=== PATIENT | female | born 1960 | race Caucasian/White ===

== ENCOUNTER 2017-03-31 19:11 | Emergency (ER) | payer MEDICAID ==
[~2017-03-31] VITALS: Ht 162.6 cm; Wt 106.0 kg
[2017-04-01] MEDS ORDERED: FAMOTIDINE 20MG TABLET PO ONE (00:15)
[2017-04-01] MEDS ORDERED: IBUPROFEN 600MG TABLET PO ONE (00:15)
[2017-04-01 01:58] VITALS: BP 127/76
== END 2017-04-01 06:00 | disposition home or self-care (01) ==
LOC: ER 19:11
DX: S90.01XA Contusion of right ankle, initial encounter (principal); S80.01XA Contusion of right knee, initial encounter; S90.31XA Contusion of right foot, initial encounter; E78.00 Pure hypercholesterolemia, unspecified; W01.0XXA Fall on same level from slipping, tripping and stumbling without subsequent striking against object, initial encounter; Y93.E8 Activity, other personal hygiene; Y92.89 Other specified places as the place of occurrence of the external cause; Y99.8 Other external cause status
CPT/HCPCS: 73610; 73630; 99284

== ENCOUNTER 2017-06-17 18:16 | Emergency (ER) | payer MEDICAID, OTHER ==
[~2017-06-17] VITALS: Ht 162.6 cm; Wt 100.0 kg
[2017-06-17 21:49] LABS: BASOPHILS % 0.4 % (0.0-2.0); EOSINOPHILS % 5.8 % (0.0-5.0); HEMATOCRIT. 35.9 % (36.0-48.0); HEMOGLOBIN. 11.8 g/dL (12.0-16.0); LYMPHOCYTES % 33.8 % (20.0-50.0); MEAN CORPUSCULAR HEMOGLOBIN 30.2 pg (28.0-32.0); MEAN PLATELET VOLUME 8.9 fl (7.4-10.4); MONOCYTES % 6.4 % (2.0-8.0); NEUTROPHILS % 53.6 % (40.0-76.0); PLATELET 217 x1000/uL (130-400); RED CELL DISTRIBUTION WIDTH 13.9 % (11.6-14.6)
[2017-06-17 21:53] LABS: CLARITY URINE CLOUDY (CLEAR); COLOR URINE YELLOW (YELLOW); GLUCOSE URINE NEGATIVE (NEGATIVE); KETONES URINE NEGATIVE (NEGATIVE); LEUKOCYTE ESTERASE URINE NEGATIVE (NEGATIVE); NITRITE URINE NEGATIVE (NEGATIVE); OCCULT BLOOD URINE NEGATIVE (NEGATIVE); PH URINE 7.5 (4.5-8.0); PROTEIN URINE NEGATIVE (NEGATIVE); SPECIFIC GRAVITY URINE 1.022 (1.005-1.030); UROBILINOGEN URINE 0.2 E.U./dL (0.2-1.0)
[2017-06-17 21:57] LABS: PROTHROMBIN TIME 10.3 sec (9.4-11.6)
[2017-06-17 21:59] LABS: CHLORIDE 105 mEq/L (98-107)
[2017-06-17 22:08] LABS: CARBON DIOXIDE 30 mEq/L (21-32)
[2017-06-17] MEDS ORDERED: MAGNESIUM/ALUMINUM HYDROXIDE/SIMETHICONE 30ML UDC PO STA (23:18)
[2017-06-17] MEDS ORDERED: FAMOTIDINE 20MG/2ML VIAL IV STA (23:18)
[2017-06-18 00:44] VITALS: BP 112/55
== END 2017-06-18 00:46 | disposition home or self-care (01) ==
LOC: ER 18:23
DX: R10.12 Left upper quadrant pain (principal); D64.9 Anemia, unspecified; E78.00 Pure hypercholesterolemia, unspecified; J45.909 Unspecified asthma, uncomplicated; R73.9 Hyperglycemia, unspecified; Z90.49 Acquired absence of other specified parts of digestive tract; Z98.890 Other specified postprocedural states
CPT/HCPCS: 36415; 80053; 81001; 83690; 85025; 85610; 96374; 99284; J3490; Z7610

== ENCOUNTER 2018-01-18 10:20 | Emergency (ER) | payer OTHER ==
[~2018-01-18] VITALS: Ht 162.6 cm; Wt 100.0 kg
[2018-01-18] MEDS ORDERED: MAGNESIUM/ALUMINUM HYDROXIDE/SIMETHICONE 30ML UDC PO STA (11:07)
[2018-01-18] MEDS ORDERED: FAMOTIDINE 20MG/2ML VIAL IV ONE (11:15)
[2018-01-18] MEDS ORDERED: SODIUM CHLORIDE 0.9% 1,000 ML IV ONE (11:15)
[2018-01-18] MEDS ORDERED: ONDANSETRON HCL 4MG/2ML VIAL IV ONE (11:15)
[2018-01-18 11:32] LABS: CLARITY URINE CLEAR (CLEAR); COLOR URINE YELLOW (YELLOW); KETONES URINE NEGATIVE (NEGATIVE); LEUKOCYTE ESTERASE URINE NEGATIVE (NEGATIVE); NITRITE URINE NEGATIVE (NEGATIVE); OCCULT BLOOD URINE NEGATIVE (NEGATIVE); PH URINE 5.5 (4.5-8.0); PROTEIN URINE NEGATIVE (NEGATIVE); SPECIFIC GRAVITY URINE 1.021 (1.005-1.030)
[2018-01-18 11:52] LABS: BASOPHILS % 0.2 % (0.0-2.0); EOSINOPHILS % 1.5 % (0.0-5.0); HEMATOCRIT. 35.7 % (36.0-48.0); HEMOGLOBIN. 12.1 g/dL (12.0-16.0); LYMPHOCYTES % 20.2 % (20.0-50.0); MEAN CORPUSCULAR HEMOGLOBIN 31.5 pg (28.0-32.0); MEAN PLATELET VOLUME 8.9 fl (7.4-10.4); MONOCYTES % 10.6 % (2.0-8.0); NEUTROPHILS % 67.5 % (40.0-76.0); PLATELET 220 x1000/uL (130-400); RED BLOOD CELL COUNT 3.84 mill/uL (4.2-5.4); RED CELL DISTRIBUTION WIDTH 13.9 % (11.6-14.6)
[2018-01-18 11:56] LABS: PROTHROMBIN TIME 10.7 sec (9.4-11.6)
[2018-01-18 11:58] LABS: CHLORIDE 105 mEq/L (98-107)
[2018-01-18] MEDS ORDERED: PREDNISONE 20MG TABLET PO STA (13:34)
[2018-01-18] MEDS ORDERED: ALBUTEROL (0.083%) 2.5MG/3ML NEB HHN STA (13:34)
[2018-01-18] MEDS ORDERED: IPRATROPIUM BROMIDE (0.02%) 0.5MG/2.5ML NEB HHN STA (13:34)
[2018-01-18] MEDS ORDERED: FENTANYL CITRATE/PF 50MCG/ML 2ML VIAL IV ONE (13:45)
[2018-01-18 16:09] VITALS: BP 124/74
== END 2018-01-18 16:11 | disposition home or self-care (01) ==
LOC: ER 11:02
DX: R10.13 Epigastric pain (principal); R73.9 Hyperglycemia, unspecified; E78.00 Pure hypercholesterolemia, unspecified; Z90.710 Acquired absence of both cervix and uterus
CPT/HCPCS: 36415; 71045; 80053; 81003; 83690; 85025; 85610; 94640; 96361; 96374; 96375; 99285; J2405; J3010; J3490; J7030; J7512; J7611

== ENCOUNTER 2019-01-29 19:11 | Emergency (ER) | payer MEDICAID, OTHER ==
[~2019-01-29] VITALS: Ht 165.1 cm; Wt 100.0 kg
[2019-01-29] MEDS ORDERED: MORPHINE SULFATE 4 MG/ML CPJ (NOT FOR IM USE) IV STA (20:12)
[2019-01-29] MEDS ORDERED: ONDANSETRON HCL 4MG/2ML INJ IV STA (20:12)
[2019-01-29 20:26] LABS: BASOPHILS % 0.2 % (0.0-2.0); EOSINOPHILS % 0.2 % (0.0-5.0); HEMATOCRIT. 38.9 % (36.0-48.0); HEMOGLOBIN. 13.1 g/dL (12.0-16.0); LYMPHOCYTES % 18.8 % (20.0-50.0); MEAN CORPUSCULAR HEMOGLOBIN 31.5 pg (28.0-32.0); MEAN CORPUSCULAR VOLUME 93.3 fL (81.0-99.0); MEAN PLATELET VOLUME 8.8 fl (7.4-10.4); MONOCYTES % 4.5 % (2.0-8.0); NEUTROPHILS % 76.3 % (40.0-76.0); PLATELET 262 x1000/uL (130-400); RED BLOOD CELL COUNT 4.17 mill/uL (4.2-5.4); RED CELL DISTRIBUTION WIDTH 13.6 % (11.6-14.6)
[2019-01-29 20:33] LABS: CHLORIDE 104 mEq/L (98-107)
[2019-01-29 20:35] LABS: PROTHROMBIN TIME 10.1 sec (9.6-11.0)
[2019-01-29 20:48] LABS: CLARITY URINE CLEAR (CLEAR); COLOR URINE YELLOW (YELLOW); KETONES URINE NEGATIVE (NEGATIVE); LEUKOCYTE ESTERASE URINE NEGATIVE (NEGATIVE); NITRITE URINE NEGATIVE (NEGATIVE); OCCULT BLOOD URINE NEGATIVE (NEGATIVE); PROTEIN URINE NEGATIVE (NEGATIVE); SPECIFIC GRAVITY URINE 1.009 (1.005-1.030); UROBILINOGEN URINE 0.2 E.U./dL (0.2-1.0)
[2019-01-29 23:02] VITALS: BP 111/59
== END 2019-01-29 23:02 | disposition home or self-care (01) ==
LOC: ER 19:11
DX: K57.92 Diverticulitis of intestine, part unspecified, without perforation or abscess without bleeding (principal); K64.4 Residual hemorrhoidal skin tags; E78.00 Pure hypercholesterolemia, unspecified; Z90.710 Acquired absence of both cervix and uterus
CPT/HCPCS: 36415; 74176; 80053; 81003; 83690; 85025; 85610; 96374; 96375; 99284; J2270; J2405; Z7610

== ENCOUNTER 2019-04-05 01:14 | Emergency (ER) | payer MEDICAID ==
[~2019-04-05] VITALS: Ht 160 cm; Wt 100.0 kg
[2019-04-05] MEDS ORDERED: MAGNESIUM/ALUMINUM HYDROXIDE/SIMETHICONE 30ML UDC PO STA (02:12)
[2019-04-05] MEDS ORDERED: VISCOUS LIDOCAINE 2% 15 ML UDC PO STA (02:12)
[2019-04-05] MEDS ORDERED: OMEPRAZOLE 20MG CAPSULE EXTENDED RELEASE PO ONE (02:15)
[2019-04-05 02:30] LABS: BASOPHILS % 0.3 % (0.0-2.0); EOSINOPHILS % 1.2 % (0.0-5.0); HEMATOCRIT. 35.6 % (36.0-48.0); HEMOGLOBIN. 12.1 g/dL (12.0-16.0); LYMPHOCYTES % 40.3 % (20.0-50.0); MEAN CORPUSCULAR HEMOGLOBIN 31.4 pg (28.0-32.0); MEAN CORPUSCULAR VOLUME 92.3 fL (81.0-99.0); MEAN PLATELET VOLUME 8.1 fl (7.4-10.4); MONOCYTES % 7.2 % (2.0-8.0); PLATELET 213 x1000/uL (130-400); RED BLOOD CELL COUNT 3.86 mill/uL (4.2-5.4); RED CELL DISTRIBUTION WIDTH 13.6 % (11.6-14.6)
[2019-04-05 02:42] LABS: CHLORIDE 105 mEq/L (98-107)
[2019-04-05 02:46] LABS: ETHANOL BLOOD < 10 mg/dL
[2019-04-05 04:10] VITALS: BP 131/79
== END 2019-04-05 05:04 | disposition home or self-care (01) ==
LOC: ER 01:14
DX: K57.90 Diverticulosis of intestine, part unspecified, without perforation or abscess without bleeding (principal); E78.00 Pure hypercholesterolemia, unspecified
CPT/HCPCS: 36415; 74176; 80320; 93005; 99284; G0480

== ENCOUNTER 2021-02-25 19:27 | Emergency (ER) | payer MEDICARE, OTHER ==
[~2021-02-25] VITALS: Ht 165.1 cm; Wt 99.9 kg
[2021-02-25] MEDS ORDERED: HYDR-4001 MT (22:52)
[2021-02-25] MEDS ORDERED: AMOX1TAB16 MT (22:52)
[2021-02-25 22:56] VITALS: BP 134/61
[2021-02-25] MEDS ORDERED: AMOXICILLIN/POTASSIUM CLAVULANATE 875/125MG TAB PO ONE (23:00)
[2021-02-25] MEDS ORDERED: HYDROCODONE/ACETAMINOPHEN 5/325MG TABLET PO ONE (23:00)
== END 2021-02-25 23:20 | disposition home or self-care (01) ==
LOC: ER 19:57
DX: L03.116 Cellulitis of left lower limb (principal); R19.7 Diarrhea, unspecified; K21.9 Gastro-esophageal reflux disease without esophagitis; E78.00 Pure hypercholesterolemia, unspecified; J45.909 Unspecified asthma, uncomplicated
CPT/HCPCS: 99283

== ENCOUNTER 2021-10-01 20:37 | Emergency (ER) | payer MEDICARE, MEDICAID ==
[~2021-10-01] VITALS: Ht 152.4 cm; Wt 101.0 kg
[~2021-10-01 20:37] MED LIST: AMOX1TAB16 MT; HYDR-4001 MT
[2021-10-01] MEDS ORDERED: VISCOUS LIDOCAINE 2% 15 ML UDC PO STA (21:28)
[2021-10-01] MEDS ORDERED: MAGNESIUM/ALUMINUM HYDROXIDE/SIMETHICONE 30ML UDC PO STA (21:28)
[2021-10-01] MEDS ORDERED: PANTOPRAZOLE SODIUM 40 MG/VIAL IV STA (21:28)
[2021-10-01] MEDS ORDERED: ONDANSETRON HCL 4MG/2ML INJ IV STA (21:28)
[2021-10-01] MEDS ORDERED: DICYCLOMINE HCL 10MG/ML 2ML VIAL IM ONE (21:30)
[2021-10-01 22:26] LABS: CLARITY URINE CLEAR (CLEAR); COLOR URINE YELLOW (YELLOW); KETONES URINE NEGATIVE (NEGATIVE); LEUKOCYTE ESTERASE URINE NEGATIVE (NEGATIVE); NITRITE URINE NEGATIVE (NEGATIVE); OCCULT BLOOD URINE NEGATIVE (NEGATIVE); PH URINE 6.5 (4.5-8.0); PROTEIN URINE NEGATIVE (NEGATIVE); SPECIFIC GRAVITY URINE 1.014 (1.005-1.030); UROBILINOGEN URINE 0.2 E.U./dL (0.2-1.0)
[2021-10-01 22:32] LABS: CHLORIDE 107 mEq/L (98-107)
[2021-10-01 22:35] LABS: *AMPHETAMINES SCREEN URINE NEGATIVE (NEGATIVE); *BARBITURATES SCREEN URINE NEGATIVE (NEGATIVE)
[2021-10-01 22:36] LABS: *BENZODIAZEPINES SCREEN URINE NEGATIVE (NEGATIVE); *COCAINE SCREEN URINE NEGATIVE (NEGATIVE); CANNABINOID URINE SCREEN NEGATIVE (NEGATIVE); METHADONE URINE SCREEN NEGATIVE (NEGATIVE); OPIATES URINE SCREEN NEGATIVE (NEGATIVE); PHENCYCLIDINE URINE SCREEN NEGATIVE (NEGATIVE)
[2021-10-01 22:36] LABS: ETHANOL BLOOD < 10 mg/dL
[2021-10-01 22:39] LABS: BASOPHILS % 0.3 % (0.0-2.0); EOSINOPHILS % 1.5 % (0.0-5.0); HEMATOCRIT. 36.8 % (36.0-48.0); HEMOGLOBIN. 12.3 g/dL (12.0-16.0); LYMPHOCYTES % 38.5 % (20.0-50.0); MEAN CORPUSCULAR HEMOGLOBIN 30.6 pg (28.0-32.0); MEAN CORPUSCULAR VOLUME 91.5 fL (81.0-99.0); MONOCYTES % 5.9 % (2.0-8.0); NEUTROPHILS % 53.8 % (40.0-76.0); PLATELET 235 x1000/uL (130-400); RED BLOOD CELL COUNT 4.02 mill/uL (4.2-5.4); RED CELL DISTRIBUTION WIDTH 13.6 % (11.6-14.6)
[2021-10-02] MEDS ORDERED: CEPH500C2 MT (00:28)
[2021-10-02] MEDS ORDERED: ONDA4TAB5 MT (00:28)
[2021-10-02] MEDS ORDERED: DICY10CA88 MT (00:28)
[2021-10-02] MEDS ORDERED: CEPHALEXIN 250MG CAPSULE PO ONE (00:30)
[2021-10-02 00:54] VITALS: BP 135/69
== END 2021-10-02 00:56 | disposition home or self-care (01) ==
LOC: ER 20:37
DX: K57.32 Diverticulitis of large intestine without perforation or abscess without bleeding (principal); I10 Essential (primary) hypertension; Z98.51 Tubal ligation status
CPT/HCPCS: 36415; 74176; 80053; 80305; 80320; 81003; 83605; 83690; 85025; 96372; 96374; 96375; 99284; C9113; J0500; J2405; G0480

== ENCOUNTER 2021-10-19 20:44 | Emergency (ER) | payer MEDICARE, MEDICAID ==
[~2021-10-19] VITALS: Ht 162.6 cm; Wt 100.0 kg
[~2021-10-19 20:44] MED LIST changes: +CEPH500C2 MT; +DICY10CA88 MT; +ONDA4TAB5 MT
[2021-10-19] MEDS ORDERED: KETOROLAC 30MG/ML VIAL IM STA (23:55)
[2021-10-20 00:08] VITALS: BP 119/92
[2021-10-20 01:06] LABS: BASOPHILS % 0.3 % (0.0-2.0); EOSINOPHILS % 1.3 % (0.0-5.0); HEMATOCRIT. 37.3 % (36.0-48.0); HEMOGLOBIN. 12.6 g/dL (12.0-16.0); MEAN CORPUSCULAR HEMOGLOBIN 30.9 pg (28.0-32.0); MEAN CORPUSCULAR VOLUME 91.2 fL (81.0-99.0); MONOCYTES % 6.5 % (2.0-8.0); NEUTROPHILS % 51.9 % (40.0-76.0); PLATELET 247 x1000/uL (130-400); RED BLOOD CELL COUNT 4.09 mill/uL (4.2-5.4); RED CELL DISTRIBUTION WIDTH 13.6 % (11.6-14.6)
[2021-10-20 01:10] LABS: CHLORIDE 106 mEq/L (98-107)
[2021-10-20] MEDS ORDERED: BACL20TA MT (01:25)
[2021-10-20] MEDS ORDERED: IBUP-2029 MT (01:25)
== END 2021-10-20 01:49 | disposition home or self-care (01) ==
LOC: ER 20:44
DX: M54.42 Lumbago with sciatica, left side (principal); E78.00 Pure hypercholesterolemia, unspecified; Z98.51 Tubal ligation status
CPT/HCPCS: 36415; 72100; 72170; 80053; 83690; 85025; 96372; 99284; J1885

== ENCOUNTER 2021-11-15 20:22 | Emergency (ER) | payer MEDICARE, MEDICAID ==
[~2021-11-15] VITALS: Ht 154.9 cm; Wt 101.0 kg
[~2021-11-15 20:22] MED LIST changes: +BACL20TA MT; +IBUP-2029 MT
[2021-11-15] MEDS ORDERED: CYCLOBENZAPRINE 10MG TABLET PO ONE (21:45)
[2021-11-15] MEDS ORDERED: ACETAMINOPHEN 325MG TABLET PO ONE (21:45)
[2021-11-15 22:10] LABS: BASOPHILS % 0.3 % (0.0-2.0); EOSINOPHILS % 1.2 % (0.0-5.0); HEMATOCRIT. 37.6 % (36.0-48.0); HEMOGLOBIN. 12.4 g/dL (12.0-16.0); LYMPHOCYTES % 39.9 % (20.0-50.0); MEAN CORPUSCULAR HEMOGLOBIN 30.4 pg (28.0-32.0); MEAN CORPUSCULAR VOLUME 92.2 fL (81.0-99.0); MONOCYTES % 5.7 % (2.0-8.0); NEUTROPHILS % 52.9 % (40.0-76.0); PLATELET 259 x1000/uL (130-400); RED BLOOD CELL COUNT 4.07 mill/uL (4.2-5.4); RED CELL DISTRIBUTION WIDTH 13.6 % (11.6-14.6)
[2021-11-15 22:13] LABS: CHLORIDE 107 mEq/L (98-107)
[2021-11-15 22:57] VITALS: BP 129/71
[2021-11-15] MEDS ORDERED: MED4 MT (23:42)
[2021-11-15] MEDS ORDERED: CYCL5TAB MT (23:43)
[2021-11-15 23:55] LABS: CLARITY URINE CLEAR (CLEAR); COLOR URINE YELLOW (YELLOW); KETONES URINE TRACE (NEGATIVE); LEUKOCYTE ESTERASE URINE TRACE (NEGATIVE); NITRITE URINE NEGATIVE (NEGATIVE); OCCULT BLOOD URINE NEGATIVE (NEGATIVE); PH URINE 5.5 (4.5-8.0); PROTEIN URINE NEGATIVE (NEGATIVE); SPECIFIC GRAVITY URINE 1.023 (1.005-1.030); UROBILINOGEN URINE 0.2 E.U./dL (0.2-1.0)
== END 2021-11-15 23:55 | disposition home or self-care (01) ==
LOC: ER 20:22
DX: M54.42 Lumbago with sciatica, left side (principal); R03.0 Elevated blood-pressure reading, without diagnosis of hypertension; E78.00 Pure hypercholesterolemia, unspecified
CPT/HCPCS: 36415; 72131; 80053; 81003; 85025; 99284

== ENCOUNTER 2021-12-07 16:57 | Emergency (ER) | payer MEDICARE, MEDICAID ==
[~2021-12-07] VITALS: Ht 162.6 cm; Wt 91.0 kg
[~2021-12-07 16:57] MED LIST changes: +CYCL5TAB MT; +MED4 MT
[2021-12-07 17:21] VITALS: BP 115/63
[2021-12-07] MEDS ORDERED: ACETAMINOPHEN 325MG TABLET PO STA (17:22)
[2021-12-07] MEDS ORDERED: GUAIFENESIN 600MG ER TABLET PO ONE (17:30)
[2021-12-07 19:31] LABS: BASOPHILS % 0.2 % (0.0-2.0); EOSINOPHILS % 1.1 % (0.0-5.0); HEMOGLOBIN. 12.5 g/dL (12.0-16.0); LYMPHOCYTES % 24.2 % (20.0-50.0); MEAN CORPUSCULAR HEMOGLOBIN 30.9 pg (28.0-32.0); MEAN CORPUSCULAR VOLUME 91.7 fL (81.0-99.0); MEAN PLATELET VOLUME 8.7 fl (7.4-10.4); MONOCYTES % 6.7 % (2.0-8.0); NEUTROPHILS % 67.8 % (40.0-76.0); PLATELET 239 x1000/uL (130-400); RED BLOOD CELL COUNT 4.03 mill/uL (4.2-5.4); RED CELL DISTRIBUTION WIDTH 13.7 % (11.6-14.6)
[2021-12-07 19:39] LABS: CHLORIDE 105 mEq/L (98-107)
[2021-12-07] MEDS ORDERED: ACET-2708 MT (23:04)
[2021-12-07] MEDS ORDERED: BENZ-16 MT (23:04)
[2021-12-07] MEDS ORDERED: ALBU6.7H9 INH (23:04)
[2021-12-07 23:16] LABS: CLARITY URINE CLEAR (CLEAR); COLOR URINE YELLOW (YELLOW); KETONES URINE NEGATIVE (NEGATIVE); LEUKOCYTE ESTERASE URINE TRACE (NEGATIVE); NITRITE URINE NEGATIVE (NEGATIVE); OCCULT BLOOD URINE NEGATIVE (NEGATIVE); PROTEIN URINE NEGATIVE (NEGATIVE); SPECIFIC GRAVITY URINE 1.008 (1.005-1.030); UROBILINOGEN URINE 0.2 E.U./dL (0.2-1.0)
[2021-12-07] MEDS ORDERED: ACETAMINOPHEN 325MG TABLET PO NR (23:45)
== END 2021-12-08 01:00 | disposition home or self-care (01) ==
LOC: ER 16:57
DX: B34.9 Viral infection, unspecified (principal); E78.00 Pure hypercholesterolemia, unspecified; Z20.822 Contact with and (suspected) exposure to COVID-19; Z98.51 Tubal ligation status
CPT/HCPCS: 36415; 71045; 80053; 81003; 83605; 84145; 84484; 85025; 87040; 87086; 87426; 87804; 93005; 93971; 99285; C9803

== ENCOUNTER 2022-04-17 17:38 | Emergency (ER) | payer MEDICARE, MEDICAID ==
[~2022-04-17] VITALS: Ht 165.1 cm; Wt 100.0 kg
[~2022-04-17 17:38] MED LIST changes: +ACET-2708 MT; +ALBU6.7H9 INH; +BENZ-16 MT
[2022-04-17 17:40] VITALS: BP 110/73
[2022-04-17] MEDS ORDERED: ACETAMINOPHEN 325MG TABLET PO STA (19:08)
[2022-04-17 19:45] LABS: BASOPHILS % 0.3 % (0.0-2.0); EOSINOPHILS % 0.5 % (0.0-5.0); HEMATOCRIT. 39.1 % (36.0-48.0); HEMOGLOBIN. 13.3 g/dL (12.0-16.0); LYMPHOCYTES % 23.4 % (20.0-50.0); MEAN CORPUSCULAR HEMOGLOBIN 31.6 pg (28.0-32.0); MEAN CORPUSCULAR VOLUME 93.4 fL (81.0-99.0); MEAN PLATELET VOLUME 8.7 fl (7.4-10.4); MONOCYTES % 8.4 % (2.0-8.0); NEUTROPHILS % 67.4 % (40.0-76.0); PLATELET 279 x1000/uL (130-400); RED BLOOD CELL COUNT 4.19 mill/uL (4.2-5.4); RED CELL DISTRIBUTION WIDTH 13.7 % (11.6-14.6)
[2022-04-17 19:46] LABS: CLARITY URINE CLOUDY (CLEAR); COLOR URINE YELLOW (YELLOW); KETONES URINE NEGATIVE (NEGATIVE); LEUKOCYTE ESTERASE URINE 3+ (NEGATIVE); NITRITE URINE NEGATIVE (NEGATIVE); OCCULT BLOOD URINE 2+ (NEGATIVE); PH URINE 7.5 (4.5-8.0); PROTEIN URINE 1+ (NEGATIVE); SPECIFIC GRAVITY URINE 1.008 (1.005-1.030); UROBILINOGEN URINE 0.2 E.U./dL (0.2-1.0)
[2022-04-17 19:58] LABS: CHLORIDE 103 mEq/L (98-107)
[2022-04-17] MEDS ORDERED: CEPHALEXIN 250MG CAPSULE PO NR (20:30)
[2022-04-17] MEDS ORDERED: CEPH500C2 MT (20:32)
[2022-04-17] MEDS ORDERED: ACET-2708 MT (20:33)
== END 2022-04-17 20:59 | disposition home or self-care (01) ==
LOC: ER 17:38
DX: N39.0 Urinary tract infection, site not specified (principal); D72.829 Elevated white blood cell count, unspecified; E78.00 Pure hypercholesterolemia, unspecified
CPT/HCPCS: 36415; 76770; 80053; 81003; 85025; 99284

== ENCOUNTER 2022-12-19 22:06 | Emergency (ER) | payer OTHER, MEDICAID ==
[~2022-12-19] VITALS: Ht 154.9 cm; Wt 102.1 kg
[~2022-12-19 22:06] MED LIST changes: +ALBU6.7H3 INH; -ALBU6.7H9 INH
[2022-12-19 22:20] VITALS: BP 114/76
[2022-12-19 23:46] LABS: CHLORIDE 107 mEq/L (98-107)
[2022-12-20 00:04] LABS: BASOPHILS % 0.2 % (0.0-2.0); EOSINOPHILS % 2.7 % (0.0-5.0); HEMATOCRIT. 36.9 % (36.0-48.0); HEMOGLOBIN. 12.1 g/dL (12.0-16.0); LYMPHOCYTES % 43.5 % (20.0-50.0); MEAN CORPUSCULAR HEMOGLOBIN 30.6 pg (28.0-32.0); MEAN CORPUSCULAR VOLUME 93.5 fL (81.0-99.0); MEAN PLATELET VOLUME 8.5 fl (7.4-10.4); NEUTROPHILS % 44.6 % (40.0-76.0); PLATELET 271 x1000/uL (130-400); RED BLOOD CELL COUNT 3.95 mill/uL (4.2-5.4); RED CELL DISTRIBUTION WIDTH 13.7 % (11.6-14.6)
[2022-12-20] MEDS ORDERED: GUAI-741 MT (00:24)
== END 2022-12-20 00:48 | disposition home or self-care (01) ==
LOC: ER 22:06
DX: B34.9 Viral infection, unspecified (principal); E78.00 Pure hypercholesterolemia, unspecified; Z20.822 Contact with and (suspected) exposure to COVID-19
CPT/HCPCS: 36415; 71045; 80053; 84484; 85025; 87426; 87804; 93005; 99285; C9803

== ENCOUNTER 2024-10-14 18:55 | Emergency (ER) | payer MEDICARE, MEDICAID ==
[~2024-10-14] VITALS: Ht 165.1 cm; Wt 78.0 kg
[~2024-10-14 18:55] MED LIST changes: +ATOR20TA65 PO; -CYCL5TAB MT; +CYCL5TAB3 MT; +DICY-18 MT; -DICY10CA88 MT; +GUAI-741 MT; -MED4 MT; +METH4TAB95 MT; +OMEP40CA20 PO
[2024-10-14 18:58] VITALS: O2SAT 99
[2024-10-14 19:03] VITALS: BP 116/82; PULSE 100; RESP 18; TEMP 37.1; O2SAT 99
[2024-10-15] MEDS ORDERED: AMOX1TAB16 MT (00:02)
== END 2024-10-15 00:59 | disposition home or self-care (01) ==
LOC: ER 18:55
DX: B34.9 Viral infection, unspecified (principal); E78.00 Pure hypercholesterolemia, unspecified; Z79.899 Other long term (current) drug therapy; Z90.49 Acquired absence of other specified parts of digestive tract; Z98.51 Tubal ligation status
CPT/HCPCS: 71045; 87070; 87430; 99283; 99284